=== PATIENT | male | born 1965 | race Caucasian/White ===

== ENCOUNTER 2020-06-30 05:15 | Day surgery (SDC) | payer MEDICARE ==
[2020-06-23 16:15] LABS: ALBUMIN 3.8 G/DL (3.4-5.0); ALBUMIN/GLOBULIN RATIO 0.9 (1.1-1.5); ALKALINE PHOSPHATASE 66 IU/L (46-116); BLOOD UREA NITROGEN 18 MG/DL (7-18); BUN/CREATININE RATIO 26.1 (5.4-32.0); CALCIUM 8.6 MG/DL (8.5-10.1); CHLORIDE 102 MMOL/L (99-107); CREATININE 0.69 MG/DL (0.60-1.10); PRE OP ALT 26 U/L (30-65); PRE OP ANION GAP 8 (8-16); PRE OP AST 21 U/L (10-37); PRE OP GLUCOSE 85 MG/DL (70-104); PRE OP POTASSIUM 3.9 MMOL/L (3.4-5.1); PRE OP SODIUM 141 MMOL/L (135-145); TOTAL CARBON DIOXIDE 30.8 MMOL/L (24-32); eGFR > 90 ML/MIN
[2020-06-23 16:36] LABS: BASOPHILS % (AUTO) 0.7 % (0-1); EOSINOPHILS # (AUTO) 0.5 X10'3 (0-0.9); EOSINOPHILS % (AUTO) 9.8 % (0-6); LYMPHOCYTES # (AUTO) 1.4 X10'3 (1.1-4.8); LYMPHOCYTES % (AUTO) 25.3 % (21-51); MEAN CORPUSCULAR HEMOGLOBIN 30.6 PG (27.0-31.0); MEAN CORPUSCULAR HGB CONC 33.4 g/dL (33.0-36.5); MEAN CORPUSCULAR VOLUME 91.7 FL (78-98); MEAN PLATELET VOLUME 8.6 FL (7.4-10.4); MONOCYTES # (AUTO) 0.7 X10'3 (0-0.9); MONOCYTES % (AUTO) 11.8 % (2-12); NEUTROPHILS # (AUTO) 2.9 X10'3 (1.8-7.7); NEUTROPHILS % (AUTO) 52.4 % (42-75); PRE OP HEMATOCRIT 45.8 % (42.0-52.0); PRE OP HEMOGLOBIN 15.3 g/dL (14.0-17.9); PRE OP PLATELET COUNT 200 X10'3 (140-440); RED CELL DISTRIBUTION WIDTH 14.4 % (11.5-14.5)
[2020-06-30] VITALS (10 sets, daily range): BP systolic 125–139; BP diastolic 81–106
[~2020-06-30] VITALS: Ht 185.4 cm; Wt 131.5 kg
[~2020-06-30 05:15] MED LIST: CARV25TA2 PO; DIGO250T PO; FURO20TA4 PO; WARF10TA45 PO
[2020-06-30] MEDS ORDERED: DOCUMENT DATE & TIME OF BETA-BLOCKER PO ONE (05:30)
[2020-06-30] MEDS ORDERED: famotidine 20mg tablet PO ONE (05:30)
[2020-06-30] MEDS ORDERED: ceFAZolin inj. 3,000 MG in normal saline 100ml IV soln 100 ML IV ONE (05:30)
[2020-06-30] MEDS ORDERED: albuterol 2.5 MG/3 ML nebule NEB ONE (05:30)
[2020-06-30] MEDS ORDERED: ringers solution, lacted 1,000 ML IV SCH ×2 (06:05→08:40)
[2020-06-30] MEDS ORDERED: BUPIVAcaine/PF 2.5 mg/ml (0.25%) 30ml vial ONE (06:36)
[2020-06-30] MEDS ORDERED: LIDOcaine 1% 30ml preserv. free vial ONE (06:36)
[2020-06-30 06:45] LABS: PARTIAL THROMBOPLASTIN TIME 29 SECONDS (22-32)
[2020-06-30] MEDS ORDERED: midazolam 2 mg/2 ml injection ONE (07:34)
[2020-06-30] MEDS ORDERED: fentaNYL /PF 50mcg/ml 5ml ampule ONE (07:34)
[2020-06-30] MEDS ORDERED: rocuronium 10mg/ml inj IV ONE (07:34)
[2020-06-30] MEDS ORDERED: etomidate 2mg/ml inj. ONE (07:34)
[2020-06-30] MEDS ORDERED: LIDOcaine 1% 30ml preserv. free vial IJ ONE (07:58)
[2020-06-30] MEDS ORDERED: BUPIVAcaine/PF 2.5 mg/ml (0.25%) 30ml vial IJ ONE (07:58)
[2020-06-30] MEDS ORDERED: acetaminophen 1,000mg/100ml IV 100 ML IV ONE (08:15)
[2020-06-30] MEDS ORDERED: proCHLORperazine 10 MG/2 ml inj IV PRN (08:40)
[2020-06-30] MEDS ORDERED: morphine 4 MG/ML inj SYRINge IV PRN (08:40)
[2020-06-30] MEDS ORDERED: ondansetron/PF 4mg/2ml inj IV PRN (08:40)
[2020-06-30] MEDS ORDERED: meperidine/PF 25mg/ml syringe IV PRN ×3 (08:40)
[2020-06-30] MEDS ORDERED: morphine 2 MG/ML inj. syringe IV PRN (08:40)
--- NOTE | 2020-06-30 09:05 | NUR ---
Received from OR via BED, accompanied by Anesthesiologist. DR MONTGOMERY and report given by Anesthesiolgist. PATIENT WAKING UP, NO S/S OF PAIN, V/S WNL, SCD ON, 20G PIV LUE, INC W/SUTURES AND DERMABOND TO ABDOMEN CDI.
[2020-06-30] MEDS ORDERED: oxyCODONE/APAP 5-325mg tablet PO PRN ×2 (09:15)
--- NOTE | 2020-06-30 10:25 | NUR ---
PATIENT A&OX4, DENIES PAIN, V/S WNL, SCD ON, 20G BASSEM PLUNKETT D/C, INC W/SUTURES AND DERMABOND TO ABDOMEN CDI. . I HAVE REVIEWED D/C INSTRUCTIONS WITH PATIENT WHO VERBALIZED UNDERSTANDINGAS WELL HIS . HE WAS TAKEN HOME WITH ALL BELONGINGS. FAMILY GAVE PATIENT TRANSPORT HOME.
== END 2020-06-30 10:25 | disposition home or self-care (01) ==
LOC: PAS 05:15
PROVIDERS: ATTEND Surgery
DX: K42.0 Umbilical hernia with obstruction, without gangrene (principal); K43.6 Other and unspecified ventral hernia with obstruction, without gangrene; G47.30 Sleep apnea, unspecified; I10 Essential (primary) hypertension; I48.91 Unspecified atrial fibrillation; E66.01 Morbid (severe) obesity due to excess calories; Z68.37 Body mass index [BMI] 37.0-37.9, adult; Z72.89 Other problems related to lifestyle; Z86.14 Personal history of Methicillin resistant Staphylococcus aureus infection; Z79.01 Long term (current) use of anticoagulants; Z79.899 Other long term (current) drug therapy; Z20.828 Contact with and (suspected) exposure to other viral communicable diseases; Z98.890 Other specified postprocedural states; Z86.73 Personal history of transient ischemic attack (TIA), and cerebral infarction without residual deficits; Z80.3 Family history of malignant neoplasm of breast
CPT/HCPCS: 36415; 49561; 49568; 49587; 80053; 82948; 85025; 85610; 85730; 87635; C1781; J0131; J0690; J2001; J2250; J3010; J3490; J7120; A4618; A7000